=== PATIENT | male | born 1950 | race Caucasian/White ===

== ENCOUNTER 2020-07-26 09:39 | Outpatient (CLI) | payer OTHER, SELFPAY ==
[2020-07-27 12:39] LABS: COVID-19 RT-PCR Result NEGATIVE (Negative)
== END 2020-07-26 09:59 ==
PROVIDERS: Visit Provider Nurse Practitioner Family
DX: Z11.59 Encounter for screening for other viral diseases (principal)
CPT/HCPCS: U0003